=== PATIENT | male | born 1975 | race African-American/Black ===

== ENCOUNTER 2023-12-07 15:00 | Emergency (ER) | payer BC ==
[2023-12-07 15:08] VITALS: BP 108/71; PULSE 66; RESP 18; TEMP 98.1; BMI 23.7
[2023-12-07 15:52] LABS: HEMATOCRIT 42.5 % (35.4-49); HEMOGLOBIN 14.1 G/dL (11.7-16.9); MCH 28.9 pg (25.7-33.7); MCHC 33.1 g/dl (32.0-35.9); MEAN CELL VOLUME 87.1 fl (80-96); MEAN PLT VOLUME 8.2 fl (7.5-11.1); PLATELET COUNT 160.3 10^3/uL (134-434); RBC 4.88 10^6/uL (4.00-5.60); RDW 14.4 % (11.9-15.9); WHITE BLOOD COUNT 4.3 10^3/uL (4.0-10.8)
[2023-12-07 16:12] LABS: PLATELET ESTIMATE ADEQUATE
[2023-12-07 16:27] LABS: GLUCOSE,RANDOM 80 mg/dl (74-106)
[2023-12-07 16:28] LABS: ANION GAP 5 mmol/L (4-13); CALCIUM 9.4 mg/dl (8.5-10.1); CHLORIDE 103 mmol/L (98-107); CO2 30 mmol/L (21-32); CREATININE 1.4 mg/dl (0.6-1.3); POTASSIUM 4.1 mmol/L (3.5-5.1); SODIUM 138 mmol/L (136-145)
[2023-12-07 16:29] LABS: ALBUMIN 4.1 g/dl (3.4-5.0); TOT PROT 6.6 g/dl (6.4-8.2)
[2023-12-07 16:30] LABS: BILIRUBIN,TOTAL 0.8 mg/dl (0.2-1); SGOT/AST 27 U/L (15-37); SGPT/ALT 20 U/L (7-52)
[2023-12-07 16:31] LABS: ALK PHOS 43 U/L (45-117)
[2023-12-07] MEDS ORDERED: DEXAMETHASONE 4 MG TABLET (FP) ONE (17:13)
[2023-12-07] MEDS ORDERED: ALBUTEROL SO4 HFA INHALER IH ONE (17:13)
[2023-12-07] MEDS: ALBUTEROL SO4 HFA INHALER IH ONE (17:25)
[2023-12-07] MEDS: DEXAMETHASONE 4 MG TABLET (FP) PO ONE (17:25)
== END 2023-12-07 17:38 | disposition home or self-care (01) ==
LOC: FER 15:00
DX: R55 Syncope and collapse (principal); R06.2 Wheezing; J06.9 Acute upper respiratory infection, unspecified; Z20.822 Contact with and (suspected) exposure to COVID-19
CPT/HCPCS: 0241U-QW; 36415; 71046-TC-FY; 80053; 84484; 85025; 93005; 99285-25